=== PATIENT | female | born 1950 | race Caucasian/White ===

== ENCOUNTER 2019-10-06 11:48 | Inpatient (IN) ==
[2019-10-06 12:29] LABS: Basophils % 0.2 % (0.0-0.8); Hematocrit 39.7 VOL% (35.7-47.0); Hemoglobin 12.2 GM/DL (12.0-16.0); Immature Granulocytes % 0.2 %; Immature Granulocytes Absolute 0.01 #; Lymphocytes # 1.4 10*3/uL (1.4-4.0); Lymphocytes % 33.3 % (21.3-54.2); Mean Corpuscular HGB Conc 30.7 GM/DL (32-36); Mean Corpuscular Volume 84.6 FL (87-102); Mean Platelet Volume 11.1 FL (9.6-12.0); Monocytes % 4.2 % (1.7-12.7); Neutrophils % 62.1 % (38.7-73.9); Platelet Count 168 T/CUMM (130-400); Red Blood Count 4.69 MC/CUMM (3.8-5.5); Red Cell Distribution Width 15.4 % (9.3-17.3); White Blood Count 4.1 T/CUMM (4-12)
[2019-10-06 12:50] LABS: Alanine Aminotransferase 34 U/L (13-56); Albumin 3.2 G/DL (3.4-5.0); Alkaline Phosphatase 63 U/L (45-117); Aspartate Amino Transferase 38 U/L (0-37); Bilirubin,Total < 0.39 MG/DL (0.2-1.0); Blood Urea Nitrogen 29 MG/DL (7-18); Calcium 9.1 MG/DL (8.5-10.1); Estimated Glom Filtration Rate 52 ML/MIN; Glucose 187 MG/DL (74-106); Osmolality,Calculated 278.2 MOS/KG (273-304); Total Protein 7.4 G/DL (6.4-8.3)
[2019-10-06] MEDS ORDERED: AZITHROMYCIN 250 MG TABLET PO STA (14:16)
[2019-10-06] MEDS ORDERED: cefTRIAXone 1,000 MG in SODIUM CHLORIDE 0.9% 100 ML IV STA (14:16)
[2019-10-06] MEDS ORDERED: ONDANSETRON 4 MG/2 ML VIAL IV PRN (15:19)
[2019-10-06] MEDS ORDERED: GLUCAGON 1 MG VIAL IM PRN (15:21)
[2019-10-06] MEDS ORDERED: DEXTROSE 50% 25 GM/50 ML VIAL IV PRN (15:21)
[2019-10-06] MEDS ORDERED: DOCUSATE SODIUM 100 MG CAPSULE PO PRN (15:21)
[2019-10-06] MEDS ORDERED: ENOXAPARIN 40 MG/0.4 ML SYRINGE SUBCUT SCH (15:30)
[2019-10-06] MEDS: ACETAMINOPHEN 325 MG TABLET PO PRN (15:30)
[2019-10-06 15:54] LABS: Thyroid Stimulating Hormone 1.58 uIU/ml (0.358-3.74)
[2019-10-06] MEDS: SODIUM CHLORIDE 0.9% 1,000 ML IV SCH (17:13)
[2019-10-06] MEDS: INSULIN LISPRO 100 UNIT/ML SUBCUT SCH ×2 (17:14→21:14)
[2019-10-06] MEDS: PIPERACILLIN/TAZOBACTAM 3,375 MG in SODIUM CHLORIDE 0.9% 100 ML IV SCH (21:00)
[2019-10-06] MEDS: LATANOPROST 0.005% OPH SOLN 2.5 ML BOTTLE BOTH EYES SCH (21:16)
[2019-10-06] MEDS: METOPROLOL TARTRATE 50 MG TABLET PO SCH (21:16)
[2019-10-06] MEDS: ALBUTEROL 2.5 MG/3 ML NEB RESP TX SCH (21:28)
[2019-10-07] MEDS: SODIUM CHLORIDE 0.9% 1,000 ML IV SCH ×3 (02:16→21:34)
[2019-10-07] MEDS: ALBUTEROL 2.5 MG/3 ML NEB RESP TX SCH ×4 (02:17→20:39)
[2019-10-07] MEDS: ACETAMINOPHEN 325 MG TABLET PO PRN ×2 (02:30→12:50)
[2019-10-07 04:16] LABS: Basophils % 0.3 % (0.0-0.8); Hematocrit 34.4 VOL% (35.7-47.0); Hemoglobin 10.5 GM/DL (12.0-16.0); Immature Granulocytes % 0.3 %; Immature Granulocytes Absolute 0.01 #; Lymphocytes # 1.7 10*3/uL (1.4-4.0); Lymphocytes % 45.1 % (21.3-54.2); Mean Corpuscular HGB Conc 30.5 GM/DL (32-36); Mean Corpuscular Volume 85.4 FL (87-102); Mean Platelet Volume 11.5 FL (9.6-12.0); Monocytes % 4.7 % (1.7-12.7); Neutrophils % 49.6 % (38.7-73.9); Platelet Count 152 T/CUMM (130-400); Red Blood Count 4.03 MC/CUMM (3.8-5.5); Red Cell Distribution Width 15.5 % (9.3-17.3); White Blood Count 3.8 T/CUMM (4-12)
[2019-10-07 04:53] LABS: Calcium 7.9 MG/DL (8.5-10.1); Osmolality,Calculated 283.7 MOS/KG (273-304)
[2019-10-07] MEDS: PIPERACILLIN/TAZOBACTAM 3,375 MG in SODIUM CHLORIDE 0.9% 100 ML IV SCH ×3 (05:55→20:40)
[2019-10-07] MEDS: ATORVASTATIN 20 MG TABLET PO SCH (08:31)
[2019-10-07] MEDS: POTASSIUM CHLORIDE 20 MEQ TABLET PO PRN (08:31)
[2019-10-07] MEDS: METOPROLOL TARTRATE 50 MG TABLET PO SCH ×2 (08:31→20:39)
[2019-10-07] MEDS: PANTOPRAZOLE 40 MG TABLET PO SCH (08:31)
[2019-10-07] MEDS: INSULIN LISPRO 100 UNIT/ML SUBCUT SCH ×4 (08:55→22:03)
[2019-10-07] MEDS ORDERED: HYDROXYCHLOROQUINE 200 MG TABLET PO ONE ×2 (10:00→21:00)
[2019-10-07] MEDS ORDERED: ZINC GLUCONATE 50 MG TABLET PO SCH ×2 (10:00)
[2019-10-07] MEDS ORDERED: AZITHROMYCIN 250 MG TABLET PO ONE (10:00)
[2019-10-07] MEDS ORDERED: ASCORBIC ACID 500 MG/1 ML VIAL IV SCH (10:30)
[2019-10-07] MEDS: THIAMINE 200 MG/2 ML VIAL IV SCH (10:35)
[2019-10-07 11:29] LABS: % Iron Saturation 6.5 % (18-50)
[2019-10-07] MEDS: ASCORBIC ACID IV SCH ×2 (12:25→16:58)
[2019-10-07] MEDS: SODIUM CHLORIDE 0.9% IV SCH ×2 (12:25→16:58)
[2019-10-07] MEDS: hydrALAZINE 20 MG/1 ML VIAL IV PRN (12:26)
[2019-10-07] MEDS ORDERED: BENZONATATE 100 MG CAPSULE PO PRN (13:00)
[2019-10-07] MEDS: ENOXAPARIN 30 MG/0.3 ML SYRINGE SUBCUT SCH (14:07)
[2019-10-07] MEDS: amLODIPine 10 MG TABLET PO SCH (16:40)
[2019-10-07] MEDS: VANCOMYCIN INJ 1,500 MG in SODIUM CHLORIDE 0.9% 500 ML IV SCH (16:58)
[2019-10-07] MEDS: LATANOPROST 0.005% OPH SOLN 2.5 ML BOTTLE BOTH EYES SCH (20:40)
[2019-10-08] MEDS: ALBUTEROL 2.5 MG/3 ML NEB RESP TX SCH ×2 (00:27→06:53)
[2019-10-08] MEDS: SODIUM CHLORIDE 0.9% IV SCH ×3 (00:27→13:14)
[2019-10-08] MEDS: ASCORBIC ACID IV SCH ×3 (00:27→13:14)
[2019-10-08] MEDS: THIAMINE 200 MG/2 ML VIAL IV SCH ×2 (00:27→12:57)
[2019-10-08] MEDS: PIPERACILLIN/TAZOBACTAM 3,375 MG in SODIUM CHLORIDE 0.9% 100 ML IV SCH ×3 (05:17→20:04)
[2019-10-08 05:21] LABS: Basophils % 0.2 % (0.0-0.8); Hematocrit 34.8 VOL% (35.7-47.0); Hemoglobin 10.5 GM/DL (12.0-16.0); Immature Granulocytes % 0.2 %; Immature Granulocytes Absolute 0.01 #; Lymphocytes # 1.9 10*3/uL (1.4-4.0); Lymphocytes % 45.4 % (21.3-54.2); Mean Corpuscular HGB Conc 30.2 GM/DL (32-36); Mean Corpuscular Volume 88.1 FL (87-102); Mean Platelet Volume 11.2 FL (9.6-12.0); Monocytes % 6.7 % (1.7-12.7); Neutrophils % 47.5 % (38.7-73.9); Platelet Count 176 T/CUMM (130-400); Red Blood Count 3.95 MC/CUMM (3.8-5.5); Red Cell Distribution Width 15.7 % (9.3-17.3); White Blood Count 4.2 T/CUMM (4-12)
[2019-10-08] MEDS ORDERED: SODIUM CHLORIDE 0.65% NASAL SPRAY 45 ML BOTTLE BOTH NARES PRN (05:30)
[2019-10-08 06:08] LABS: Hypochromasia Slight; Ovalocytes 1+; Platelet Estimate Normal
[2019-10-08 06:13] LABS: Alanine Aminotransferase 24 U/L (13-56); Albumin 2.6 G/DL (3.4-5.0); Alkaline Phosphatase 48 U/L (45-117); Aspartate Amino Transferase 28 U/L (0-37); Bilirubin,Total < 0.39 MG/DL (0.2-1.0); Blood Urea Nitrogen 19 MG/DL (7-18); Calcium 8.5 MG/DL (8.5-10.1); Estimated Glom Filtration Rate 65 ML/MIN; Glucose 121 MG/DL (74-106); Osmolality,Calculated 283.3 MOS/KG (273-304); Total Protein 6.4 G/DL (6.4-8.3)
[2019-10-08 07:23] LABS: Apearance,Urine CLEAR (Clear); Bacteria,Urine Occasional /HPF (Few); Bilirubin,Urine Negative (Negative); Blood, Urine Negative (Negative); Glucose,Urine (UA) Negative (Negative); Ketones,Urine 5 mg/dL (Negative); Mucus,Urine Occasional /LPF (Occasional); Nitrite,Urine Negative (Negative); Protein,Urine 100 MG/DL; RBC,Urine 2 /HPF (0-4); Squamous Epithelial Cell,Urine Occasional /HPF (0-10); Urine Color Yellow (Yellow); Urine Specific Gravity 1.016 (1.001-1.035); Urine Urobilinogen < 2.0 EU/DL (0.2-1.0); WBC,Urine 1 /HPF (0-6)
[2019-10-08] MEDS: SODIUM CHLORIDE 0.9% 1,000 ML IV SCH ×2 (07:30→18:17)
[2019-10-08] MEDS: amLODIPine 10 MG TABLET PO SCH (08:41)
[2019-10-08] MEDS: METOPROLOL TARTRATE 50 MG TABLET PO SCH ×2 (08:41→20:05)
[2019-10-08] MEDS: PANTOPRAZOLE 40 MG TABLET PO SCH (08:41)
[2019-10-08] MEDS: ATORVASTATIN 20 MG TABLET PO SCH (08:42)
[2019-10-08] MEDS ORDERED: HYDROXYCHLOROQUINE 200 MG TABLET PO SCH (09:00)
[2019-10-08] MEDS: INSULIN LISPRO 100 UNIT/ML SUBCUT SCH ×4 (09:00→20:05)
[2019-10-08] MEDS ORDERED: AZITHROMYCIN 250 MG TABLET PO SCH (09:00)
[2019-10-08] MEDS ORDERED: ALBUTEROL/IPRATROPIUM 3 ML NEB RESP TX PRN (15:02)
[2019-10-08] MEDS: ENOXAPARIN 30 MG/0.3 ML SYRINGE SUBCUT SCH (16:40)
[2019-10-08] MEDS: VANCOMYCIN INJ 1,500 MG in SODIUM CHLORIDE 0.9% 500 ML IV SCH (16:40)
[2019-10-08] MEDS: hydrALAZINE 20 MG/1 ML VIAL IV PRN (17:03)
[2019-10-08] MEDS: ALBUTEROL/IPRATROPIUM 3 ML NEB RESP TX SCH (18:55)
[2019-10-08] MEDS: LATANOPROST 0.005% OPH SOLN 2.5 ML BOTTLE BOTH EYES SCH (20:05)
[2019-10-08] MEDS ORDERED: NON-FORMULARY MEDICATION (Metformin 1,000 MG) PO SCH (21:00)
[2019-10-08] MEDS ORDERED: GLIMEPIRIDE 4 MG TABLET PO SCH ×2 (21:00)
[2019-10-09] MEDS: ALBUTEROL/IPRATROPIUM 3 ML NEB RESP TX SCH ×2 (01:45→07:13)
[2019-10-09] MEDS: PIPERACILLIN/TAZOBACTAM 3,375 MG in SODIUM CHLORIDE 0.9% 100 ML IV SCH ×3 (05:57→21:49)
[2019-10-09 06:21] LABS: Basophils % 0.4 % (0.0-0.8); Eosinophils # 0.1 10*3/uL (0.0-0.87); Eosinophils % 0.9 % (0.00-10.9); Hematocrit 32.8 VOL% (35.7-47.0); Hemoglobin 9.8 GM/DL (12.0-16.0); Immature Granulocytes % 0.4 %; Immature Granulocytes Absolute 0.02 #; Lymphocytes # 1.6 10*3/uL (1.4-4.0); Lymphocytes % 28.9 % (21.3-54.2); Mean Corpuscular HGB Conc 29.9 GM/DL (32-36); Mean Corpuscular Volume 87.2 FL (87-102); Mean Platelet Volume 11.3 FL (9.6-12.0); Monocytes % 8.3 % (1.7-12.7); Neutrophils % 61.1 % (38.7-73.9); Platelet Count 196 T/CUMM (130-400); Red Blood Count 3.76 MC/CUMM (3.8-5.5); Red Cell Distribution Width 15.9 % (9.3-17.3); White Blood Count 5.4 T/CUMM (4-12)
[2019-10-09 06:39] LABS: Albumin 2.3 G/DL (3.4-5.0); Bilirubin,Total 0.4 MG/DL (0.2-1.0); Calcium 8.3 MG/DL (8.5-10.1); Osmolality,Calculated 285.1 MOS/KG (273-304); Total Protein 6.2 G/DL (6.4-8.3)
[2019-10-09] MEDS ORDERED: hydroCHLOROthiazide 25 MG TABLET PO SCH (09:00)
[2019-10-09] MEDS ORDERED: hydroCHLOROthiazide 12.5 MG CAPSULE PO SCH (09:00)
[2019-10-09] MEDS: INSULIN LISPRO 100 UNIT/ML SUBCUT SCH ×4 (09:56→21:49)
[2019-10-09] MEDS: GLIMEPIRIDE 2 MG TABLET PO SCH (09:57)
[2019-10-09] MEDS: amLODIPine 10 MG TABLET PO SCH (09:57)
[2019-10-09] MEDS: METOPROLOL TARTRATE 50 MG TABLET PO SCH ×2 (09:57→21:50)
[2019-10-09] MEDS: LOSARTAN 50 MG TABLET PO SCH (09:57)
[2019-10-09] MEDS: ATORVASTATIN 20 MG TABLET PO SCH (09:58)
[2019-10-09] MEDS: PANTOPRAZOLE 40 MG TABLET PO SCH (09:58)
[2019-10-09] MEDS: SODIUM CHLORIDE 0.9% 1,000 ML IV SCH (14:26)
[2019-10-09] MEDS: ENOXAPARIN 30 MG/0.3 ML SYRINGE SUBCUT SCH (14:29)
[2019-10-09] MEDS ORDERED: LOPERAMIDE 2 MG CAPSULE PO PRN (16:14)
[2019-10-09] MEDS: ENOXAPARIN 40 MG/0.4 ML SYRINGE SUBCUT SCH (16:46)
[2019-10-09] MEDS: LATANOPROST 0.005% OPH SOLN 2.5 ML BOTTLE BOTH EYES SCH (21:51)
[2019-10-10] MEDS: hydrALAZINE 20 MG/1 ML VIAL IV PRN ×2 (04:04→16:48)
[2019-10-10 04:46] LABS: Basophils % 0.5 % (0.0-0.8); Eosinophils # 0.1 10*3/uL (0.0-0.87); Eosinophils % 2.1 % (0.00-10.9); Hematocrit 31.1 VOL% (35.7-47.0); Hemoglobin 9.8 GM/DL (12.0-16.0); Immature Granulocytes % 0.6 %; Immature Granulocytes Absolute 0.04 #; Lymphocytes # 1.3 10*3/uL (1.4-4.0); Lymphocytes % 19.4 % (21.3-54.2); Mean Corpuscular HGB Conc 31.5 GM/DL (32-36); Mean Corpuscular Volume 83.8 FL (87-102); Mean Platelet Volume 11.2 FL (9.6-12.0); Monocytes % 9.7 % (1.7-12.7); Neutrophils % 67.7 % (38.7-73.9); Platelet Count 219 T/CUMM (130-400); Red Blood Count 3.71 MC/CUMM (3.8-5.5); Red Cell Distribution Width 15.8 % (9.3-17.3); White Blood Count 6.6 T/CUMM (4-12)
[2019-10-10 05:07] LABS: Hypochromasia Slight; Platelet Estimate Adequate
[2019-10-10 05:09] LABS: Albumin 2.4 G/DL (3.4-5.0); Bilirubin,Total 0.9 MG/DL (0.2-1.0); Calcium 8.6 MG/DL (8.5-10.1); Osmolality,Calculated 279.5 MOS/KG (273-304); Total Protein 6.4 G/DL (6.4-8.3)
[2019-10-10] MEDS: PIPERACILLIN/TAZOBACTAM 3,375 MG in SODIUM CHLORIDE 0.9% 100 ML IV SCH (05:54)
[2019-10-10] MEDS: amLODIPine 10 MG TABLET PO SCH (08:58)
[2019-10-10] MEDS: METOPROLOL TARTRATE 50 MG TABLET PO SCH ×2 (08:58→21:10)
[2019-10-10] MEDS: PANTOPRAZOLE 40 MG TABLET PO SCH (08:58)
[2019-10-10] MEDS: ATORVASTATIN 20 MG TABLET PO SCH (08:58)
[2019-10-10] MEDS: GLIMEPIRIDE 2 MG TABLET PO SCH (08:58)
[2019-10-10] MEDS: LOSARTAN 50 MG TABLET PO SCH (08:58)
[2019-10-10] MEDS: INSULIN LISPRO 100 UNIT/ML SUBCUT SCH ×4 (08:58→21:09)
[2019-10-10] MEDS: FERROUS SULFATE 325 MG TABLET PO SCH ×2 (10:21→21:09)
[2019-10-10] MEDS: POTASSIUM CHLORIDE 20 MEQ TABLET PO PRN (10:21)
[2019-10-10] MEDS: LEVOFLOXACIN INJ 500 MG in PREMIX 1 EACH IV SCH (10:21)
[2019-10-10] MEDS: ENOXAPARIN 40 MG/0.4 ML SYRINGE SUBCUT SCH (16:14)
[2019-10-10] MEDS: LATANOPROST 0.005% OPH SOLN 2.5 ML BOTTLE BOTH EYES SCH (21:10)
[2019-10-10] MEDS ORDERED: ASPIRIN EC 81 MG TABLET PO SCH (22:00)
[2019-10-11] MEDS: CLORAZEPATE 3.75 MG TABLET PO PRN (00:19)
[2019-10-11 00:20] LABS: ABG Base Excess -1.5 MMOL/L (-2.5-2.5); ABG PCO2 28.6 MM HG (35-48); ABG PH 7.484 (7.35-7.45); ABG PO2 64.1 MM HG (80-95); ABG TCO2 21.9 MMOL/L (23-27); Allen Test Positive; Pt O2 Delivery Device Other
[2019-10-11 01:53] LABS: Basophils % 0.2 % (0.0-0.8); Eosinophils % 0.3 % (0.00-10.9); Hemoglobin 10.7 GM/DL (12.0-16.0); Immature Granulocytes % 0.7 %; Immature Granulocytes Absolute 0.06 #; Lymphocytes # 1.1 10*3/uL (1.4-4.0); Lymphocytes % 12.1 % (21.3-54.2); Mean Corpuscular HGB Conc 30.6 GM/DL (32-36); Mean Corpuscular Volume 83.7 FL (87-102); Mean Platelet Volume 10.9 FL (9.6-12.0); Monocytes % 10.2 % (1.7-12.7); Neutrophils % 76.5 % (38.7-73.9); Platelet Count 291 T/CUMM (130-400); Red Blood Count 4.18 MC/CUMM (3.8-5.5); Red Cell Distribution Width 15.6 % (9.3-17.3); White Blood Count 9.1 T/CUMM (4-12)
[2019-10-11 02:16] LABS: Calcium 8.4 MG/DL (8.5-10.1); Osmolality,Calculated 286.4 MOS/KG (273-304)
[2019-10-11 04:32] LABS: Apearance,Urine CLEAR (Clear); Bacteria,Urine Occasional /HPF (Few); Bilirubin,Urine Negative (Negative); Blood, Urine Negative (Negative); Glucose,Urine (UA) >=500 mg/dL (Negative); Ketones,Urine 20 mg/dL (Negative); Mucus,Urine Occasional /LPF (Occasional); Nitrite,Urine Negative (Negative); Protein,Urine 30 MG/DL; Squamous Epithelial Cell,Urine Occasional /HPF (0-10); Urine Color Yellow (Yellow); Urine Specific Gravity 1.009 (1.001-1.035); Urine Urobilinogen < 2.0 EU/DL (0.2-1.0); WBC,Urine <1 /HPF (0-6)
[2019-10-11] MEDS: ASPIRIN EC 81 MG TABLET PO SCH (08:33)
[2019-10-11] MEDS: amLODIPine 10 MG TABLET PO SCH (08:33)
[2019-10-11] MEDS: PANTOPRAZOLE 40 MG TABLET PO SCH (08:33)
[2019-10-11] MEDS: FERROUS SULFATE 325 MG TABLET PO SCH ×2 (08:33→21:40)
[2019-10-11] MEDS: GLIMEPIRIDE 2 MG TABLET PO SCH (08:33)
[2019-10-11] MEDS: METOPROLOL TARTRATE 50 MG TABLET PO SCH ×2 (08:33→21:40)
[2019-10-11] MEDS: hydrALAZINE 20 MG/1 ML VIAL IV PRN (08:37)
[2019-10-11] MEDS: LOSARTAN 50 MG TABLET PO SCH (08:43)
[2019-10-11] MEDS: ATORVASTATIN 80 MG TABLET PO SCH (09:43)
[2019-10-11] MEDS: INSULIN LISPRO 100 UNIT/ML SUBCUT SCH ×4 (09:44→21:40)
[2019-10-11] MEDS: LEVOFLOXACIN INJ 500 MG in PREMIX 1 EACH IV SCH (11:48)
[2019-10-11] MEDS ORDERED: SODIUM CHLORIDE 0.9% 500 ML IV ONE (11:48)
[2019-10-11] MEDS: ENOXAPARIN 40 MG/0.4 ML SYRINGE SUBCUT SCH (17:51)
[2019-10-11] MEDS: LATANOPROST 0.005% OPH SOLN 2.5 ML BOTTLE BOTH EYES SCH (21:43)
[2019-10-12 04:33] LABS: Basophils % 0.2 % (0.0-0.8); Eosinophils # 0.1 10*3/uL (0.0-0.87); Eosinophils % 0.7 % (0.00-10.9); Hemoglobin 9.8 GM/DL (12.0-16.0); Immature Granulocytes % 0.6 %; Immature Granulocytes Absolute 0.06 #; Lymphocytes # 1.1 10*3/uL (1.4-4.0); Lymphocytes % 10.8 % (21.3-54.2); Mean Corpuscular HGB Conc 31.6 GM/DL (32-36); Mean Corpuscular Volume 82.2 FL (87-102); Mean Platelet Volume 11.1 FL (9.6-12.0); Monocytes % 9.9 % (1.7-12.7); Neutrophils % 77.8 % (38.7-73.9); Platelet Count 354 T/CUMM (130-400); Red Blood Count 3.77 MC/CUMM (3.8-5.5); Red Cell Distribution Width 15.7 % (9.3-17.3); White Blood Count 9.9 T/CUMM (4-12)
[2019-10-12 04:57] LABS: Calcium 8.7 MG/DL (8.5-10.1); Osmolality,Calculated 290.8 MOS/KG (273-304)
[2019-10-12 05:05] LABS: Eosinophils 3 % (0-10); Hypochromasia 1+; Lymphocytes 12 % (20-55); Ovalocytes Slight; Platelet Estimate Adequate; Segmented Neutrophils 78 % (50-85); Total Cells Counted 100
[2019-10-12 05:11] LABS: Risk Ratio 4.76
[2019-10-12] MEDS: hydrALAZINE 20 MG/1 ML VIAL IV PRN ×2 (05:45→12:54)
[2019-10-12] MEDS: INSULIN LISPRO 100 UNIT/ML SUBCUT SCH ×4 (10:39→21:39)
[2019-10-12] MEDS: LOSARTAN 50 MG TABLET PO SCH (10:40)
[2019-10-12] MEDS: GLIMEPIRIDE 2 MG TABLET PO SCH (10:40)
[2019-10-12] MEDS: ASPIRIN EC 81 MG TABLET PO SCH (10:40)
[2019-10-12] MEDS: ATORVASTATIN 80 MG TABLET PO SCH (10:41)
[2019-10-12] MEDS: METOPROLOL TARTRATE 50 MG TABLET PO SCH ×2 (10:41→21:39)
[2019-10-12] MEDS: PANTOPRAZOLE 40 MG TABLET PO SCH (10:41)
[2019-10-12] MEDS: FERROUS SULFATE 325 MG TABLET PO SCH ×2 (10:41→21:38)
[2019-10-12] MEDS: amLODIPine 10 MG TABLET PO SCH (10:41)
[2019-10-12] MEDS: POTASSIUM CHLORIDE RIDER 10 MEQ in PREMIX 1 EACH IV SCH ×3 (10:56→17:57)
[2019-10-12] MEDS: LEVOFLOXACIN INJ 500 MG in PREMIX 1 EACH IV SCH (12:58)
[2019-10-12] MEDS: ACETAMINOPHEN 325 MG TABLET PO PRN (16:24)
[2019-10-12] MEDS: ENOXAPARIN 40 MG/0.4 ML SYRINGE SUBCUT SCH (17:45)
[2019-10-12] MEDS ORDERED: POTASSIUM CHLORIDE RIDER 10 MEQ in PREMIX 1 EACH IV SCH (21:00)
[2019-10-12] MEDS: NYSTATIN CREAM 15 GM TUBE TOP SCH (21:39)
[2019-10-12] MEDS: LATANOPROST 0.005% OPH SOLN 2.5 ML BOTTLE BOTH EYES SCH (21:40)
[2019-10-13 03:17] LABS: Basophils % 0.2 % (0.0-0.8); Eosinophils # 0.3 10*3/uL (0.0-0.87); Eosinophils % 2.6 % (0.00-10.9); Hematocrit 33.5 VOL% (35.7-47.0); Hemoglobin 10.3 GM/DL (12.0-16.0); Lymphocytes # 1.3 10*3/uL (1.4-4.0); Lymphocytes % 13.1 % (21.3-54.2); Mean Corpuscular HGB Conc 30.7 GM/DL (32-36); Mean Corpuscular Volume 84.6 FL (87-102); Mean Platelet Volume 10.8 FL (9.6-12.0); Neutrophils % 71.1 % (38.7-73.9); Platelet Count 388 T/CUMM (130-400); Red Blood Count 3.96 MC/CUMM (3.8-5.5); Red Cell Distribution Width 15.6 % (9.3-17.3); White Blood Count 9.8 T/CUMM (4-12)
[2019-10-13 03:39] LABS: Osmolality,Calculated 291.8 MOS/KG (273-304)
[2019-10-13] MEDS: POTASSIUM CHLORIDE RIDER 10 MEQ in PREMIX 1 EACH IV SCH (07:58)
[2019-10-13] MEDS ORDERED: MAGNESIUM SULF RIDER 4 GM in PREMIX 1 EACH IV PRN (08:24)
[2019-10-13] MEDS ORDERED: MAGNESIUM SULF RIDER 2 GM in PREMIX 1 EACH IV PRN (08:24)
[2019-10-13] MEDS: NYSTATIN CREAM 15 GM TUBE TOP SCH ×2 (08:47→21:13)
[2019-10-13] MEDS: LEVOFLOXACIN INJ 500 MG in PREMIX 1 EACH IV SCH (10:12)
[2019-10-13] MEDS ORDERED: POTASSIUM CHLORIDE 20 MEQ TABLET PO ONE (10:15)
[2019-10-13] MEDS: INSULIN LISPRO 100 UNIT/ML SUBCUT SCH ×3 (11:58→21:12)
[2019-10-13] MEDS: LOSARTAN 50 MG TABLET PO SCH (11:59)
[2019-10-13] MEDS: GLIMEPIRIDE 2 MG TABLET PO SCH (11:59)
[2019-10-13] MEDS: ASPIRIN EC 81 MG TABLET PO SCH (11:59)
[2019-10-13] MEDS: amLODIPine 10 MG TABLET PO SCH (12:00)
[2019-10-13] MEDS: METOPROLOL TARTRATE 50 MG TABLET PO SCH ×2 (12:00→21:13)
[2019-10-13] MEDS: ATORVASTATIN 80 MG TABLET PO SCH (12:00)
[2019-10-13] MEDS: FERROUS SULFATE 325 MG TABLET PO SCH ×2 (12:00→21:13)
[2019-10-13] MEDS: PANTOPRAZOLE 40 MG TABLET PO SCH (12:01)
[2019-10-13] MEDS: ACETAMINOPHEN 325 MG TABLET PO PRN ×2 (12:39→12:42)
[2019-10-13] MEDS: DESITIN 4OZ/NYSTATIN 15 GRAM MIXTURE PASTE TOP SCH ×2 (16:22→21:14)
[2019-10-13] MEDS: ENOXAPARIN 40 MG/0.4 ML SYRINGE SUBCUT SCH (18:34)
[2019-10-13] MEDS: LATANOPROST 0.005% OPH SOLN 2.5 ML BOTTLE BOTH EYES SCH (21:14)
[2019-10-14] MEDS: CLORAZEPATE 3.75 MG TABLET PO PRN (02:20)
[2019-10-14 06:02] LABS: Basophils % 0.3 % (0.0-0.8); Eosinophils # 0.3 10*3/uL (0.0-0.87); Eosinophils % 3.7 % (0.00-10.9); Hematocrit 32.1 VOL% (35.7-47.0); Hemoglobin 10.2 GM/DL (12.0-16.0); Immature Granulocytes % 1.3 %; Immature Granulocytes Absolute 0.12 #; Lymphocytes # 1.5 10*3/uL (1.4-4.0); Lymphocytes % 16.5 % (21.3-54.2); Mean Corpuscular HGB Conc 31.8 GM/DL (32-36); Mean Corpuscular Volume 82.9 FL (87-102); Mean Platelet Volume 11.4 FL (9.6-12.0); Monocytes % 13.2 % (1.7-12.7); Platelet Count 418 T/CUMM (130-400); Red Blood Count 3.87 MC/CUMM (3.8-5.5); Red Cell Distribution Width 15.8 % (9.3-17.3); White Blood Count 9.3 T/CUMM (4-12)
[2019-10-14 06:16] LABS: Calcium 8.8 MG/DL (8.5-10.1); Osmolality,Calculated 298.4 MOS/KG (273-304)
[2019-10-14] MEDS: GLIMEPIRIDE 2 MG TABLET PO SCH (08:32)
[2019-10-14] MEDS: INSULIN LISPRO 100 UNIT/ML SUBCUT SCH ×2 (08:43→14:15)
[2019-10-14] MEDS: LEVOFLOXACIN INJ 500 MG in PREMIX 1 EACH IV SCH (09:14)
[2019-10-14] MEDS: DESITIN 4OZ/NYSTATIN 15 GRAM MIXTURE PASTE TOP SCH (09:16)
[2019-10-14] MEDS: NYSTATIN CREAM 15 GM TUBE TOP SCH (09:19)
[2019-10-14] MEDS: ASPIRIN EC 81 MG TABLET PO SCH (09:40)
[2019-10-14] MEDS: FERROUS SULFATE 325 MG TABLET PO SCH (09:40)
[2019-10-14] MEDS: METOPROLOL TARTRATE 50 MG TABLET PO SCH (09:40)
[2019-10-14] MEDS: amLODIPine 10 MG TABLET PO SCH (09:40)
[2019-10-14] MEDS: PANTOPRAZOLE 40 MG TABLET PO SCH (09:40)
[2019-10-14] MEDS: ATORVASTATIN 80 MG TABLET PO SCH (09:40)
[2019-10-14] MEDS: LOSARTAN 50 MG TABLET PO SCH (09:40)
[2019-10-14 11:43] VITALS: BP 139/100
[2019-10-14] MEDS: POTASSIUM CHLORIDE 20 MEQ TABLET PO PRN (11:52)
[2019-10-14] MEDS ORDERED: APIXABAN 2.5 MG TABLET PO SCH (21:00)
== END 2019-10-14 13:48 | DRG 177 ==
LOC: N.ED 11:48 → SUATTDRO 14:03 → N.EDINP 14:03 → N.ICU 15:15 → N.TELES 10-09 11:38
PROVIDERS: ADMIT Internal Medicine; ATTEND Internal Medicine